=== PATIENT | female | born 1965 | race Caucasian/White ===

== ENCOUNTER 2016-11-07 20:13 | Emergency (ER) | payer OTHER ==
[~2016-11-07] VITALS: Ht 167.6 cm; Wt 91.8 kg
[2016-11-07 21:31] LABS: MCH 29.7 PG (29.0-34.0); MCHC 32.7 G/DL (30.0-36.0); MCV 90.9 FL (83-99); MEAN PLAT.VOLUME 10.9 uM^3 (9.5-12.4); PLATELET COUNT 270 K/uL (156-360); RBC DIS.WIDTH-CV 12.4 % (11.8-14.6); RBC DIS.WIDTH-SD 41.1 % (39-53); RED BLOOD COUNT 4.51 M/uL (3.80-5.20); WHITE BLOOD COUNT 7.9 K/uL (4.1-10.2)
[2016-11-07 21:49] LABS: CHLORIDE 107 mEq/L (99-109); POTASSIUM 3.9 mEq/L (3.7-5.4); SODIUM 142 mEq/L (136-147)
[2016-11-07 21:51] LABS: GLUCOSE 90 mg/dL (70-99)
[2016-11-07 21:52] LABS: ANION GAP 10 MEQ/L (2-14)
[2016-11-07 21:55] LABS: GFR ESTIMATE (CALCULATED) > 59 mL/min/
[2016-11-07 21:56] LABS: UREA NITROGEN (BUN) 15 mg/dL (9-23)
[2016-11-07 22:48] VITALS: BP 152/95
== END 2016-11-07 22:49 | disposition home or self-care (01) ==
LOC: EME 20:13 → EXP 20:13
DX: R55 Syncope and collapse (principal); R51 Headache; X30.XXXA Exposure to excessive natural heat, initial encounter
CPT/HCPCS: 71020; 80048; 85027; 93005; 99281; 99284; J7030